=== PATIENT | male | born 1980 | race African-American/Black ===

== ENCOUNTER 2023-01-19 10:31 | Inpatient (IN) | payer OTHER ==
[~2023-01-19] VITALS: Ht 170.2 cm; Wt 66.7 kg
[~2023-01-19 10:31] MED LIST: CeFAZolin 2 GM/DEXTROSE 50 ML IV ONE; DIPH-1243 PO; MELO-381 PO; ZOLP10TA8 PO
[2023-01-19] MEDS ORDERED: ETHYL ALCOHOL 62% ANTISEPTIC NASAL SANITIZER 0.6 ML AMPUL NASAL ONE (11:00)
[2023-01-19] MEDS ORDERED: CeFAZolin 2 GM/DEXTROSE 50 ML IV ONE (11:25)
[2023-01-19] MEDS ORDERED: RINGERS SOLUTION,LACTATED 1,000 ML IV ONE (11:25)
[2023-01-19 12:02] LABS: BASOPHILS % (AUTO) 1.2 % (0.0-2.0); EOSINOPHILS % (AUTO) 0.6 % (1.0-6.0); HEMATOCRIT 39.3 % (41-53); HEMOGLOBIN 13.3 g/dL (13.5-17.5); LYMPHOCYTES % (AUTO) 37.9 % (22.0-44.0); MEAN CORPUSCULAR HEMOGLOBIN 31.7 pg (26.0-34.0); MEAN CORPUSCULAR HGB CONC 33.9 G/dL (31.0-37.0); MEAN CORPUSCULAR VOLUME 93 fL (80-100); MONOCYTES # (AUTO) 0.4 K/uL (0.1-1.0); MONOCYTES % (AUTO) 7.6 % (2.0-9.0); NEUTROPHILS # (AUTO) 2.8 K/uL (1.8-7.7); NEUTROPHILS % (AUTO) 52.7 % (40.0-70.0); PLATELET COUNT (AUTO) 284 K/uL (150-450); RED CELL DISTRIBUTION WIDTH 13.4 % (11.5-14.5)
[2023-01-19 12:08] LABS: ANION GAP 10 mmol/L (8-16); CALCIUM, TOTAL 9.6 mg/dL (8.8-10.5); CARBON DIOXIDE 30 mmol/L (22-29); CHLORIDE 102 mmol/L (98-107); CREATININE 1.02 mg/dL (0.60-1.30); GLOMERULAR FILTR. RATE CALC > 60 mL/min (>60); GLUCOSE,RANDOM 102 mg/dL (70-110); SODIUM SERUM 142 mmol/L (136-145); UREA NITROGEN, BLOOD 14 mg/dL (7-18)
[2023-01-19] MEDS ORDERED: SODIUM CHLORIDE 0.9% 1,000 ML ONE (12:08)
[2023-01-19] MEDS: RINGERS SOLUTION,LACTATED 1,000 ML IV SCH (12:10)
[2023-01-19 12:13] LABS: PROTHROMBIN TIME 10.4 SEC (9.4-11.6)
[2023-01-19 12:14] LABS: ALANINE AMINOTRANSFERASE 34 U/L (12-78); ALBUMIN 4.3 g/dL (3.4-5.0); ALKALINE PHOSPHATASE 54 U/L (46-116); ASPARTATE AMINOTRANSFERASE 25 U/L (15-37); BILIRUBIN,TOTAL 0.5 mg/dL (0.1-1.0); TOTAL PROTEIN, SERUM 7.8 g/dL (6.4-8.2)
[2023-01-19] MEDS ORDERED: SODIUM CHLORIDE 0.9% 50 ML ONE (12:34)
[2023-01-19] MEDS ORDERED: BUPIVACAINE HCL/PF 0.5% 30 ML VIAL ONE (12:35)
[2023-01-19] MEDS ORDERED: VANCOMYCIN HCL 1 GM/VIAL ONE (12:35)
[2023-01-19] MEDS ORDERED: SODIUM CHLORIDE 0.9% 100 ML ONE (13:11)
[2023-01-19] MEDS ORDERED: AMLO5TAB66 PO (13:13)
[2023-01-19] MEDS ORDERED: OXYC15TA2 PO (13:13)
[2023-01-19] MEDS ORDERED: BUPIVACAINE LIPOSOME/PF 1.3%-13.3MG/ML SUSPENSION 20 ML VIAL INJ ONE (13:15)
[2023-01-19] MEDS ORDERED: HYDROmorphone HCL 2 MG/ML SYRINGE ONE ×2 (15:02→18:50)
[2023-01-19] MEDS ORDERED: ROCURONIUM BROMIDE 10 MG/ML 5 ML VIAL ONE (15:46)
[2023-01-19] MEDS ORDERED: PROPOFOL 1000 MG/ISO-OSM 100 ML ONE (17:42)
[2023-01-19] MEDS ORDERED: FentaNYL CITRATE PF 100 MCG/2 ML VIAL ONE ×2 (18:41→19:22)
[2023-01-19] MEDS ORDERED: HYDROmorphone HCL 2 MG/ML SYRINGE IVP PRN (19:15)
[2023-01-19] MEDS: FentaNYL CITRATE PF 100 MCG/2 ML VIAL IVP PRN ×3 (19:24→19:27)
[2023-01-19] MEDS ORDERED: ONDANSETRON HCL 4 MG/2 ML VIAL IVP PRN ×2 (19:30→22:15)
[2023-01-19] MEDS ORDERED: FentaNYL CITRATE PF 100 MCG/2 ML VIAL IVP PRN (19:30)
[2023-01-19] MEDS ORDERED: CELECOXIB 200 MG CAPSULE PO ONE ×2 (19:30→21:00)
[2023-01-19] MEDS ORDERED: MEPERIDINE-PF 25 MG/ML VIAL IVP PRN (19:30)
[2023-01-19] MEDS: ACETAMINOPHEN 1000 MG/ISO-OSM 100 ML IV SCH (19:52)
[2023-01-19] MEDS: HYDROmorphone HCL 2 MG/ML SYRINGE IVP PRN ×3 (19:55→21:22)
[2023-01-19] MEDS: OXYGEN THERAPY IH SCH (20:00)
[2023-01-19] MEDS: CYCLOBENZAPRINE HCL 10 MG TABLET PO PRN (20:21)
[2023-01-19 20:53] VITALS: BP 138/80
[2023-01-19] MEDS ORDERED: ACETAMINOPHEN 325 MG TABLET PO PRN (22:15)
[2023-01-19] MEDS ORDERED: MAGNESIUM HYDROXIDE SUSPENSION 30 ML UDCUP PO PRN (22:15)
[2023-01-19] MEDS: ZOLPIDEM TARTRATE 5 MG TABLET PO PRN (23:15)
[2023-01-20] MEDS ORDERED: PNEUMOCOCCAL VACCINE POLYVALENT 0.5 ML VIAL [PPSV23] IM. ONE (00:45)
[2023-01-20 02:15] VITALS: BP 130/76
[2023-01-20] MEDS: HYDROmorphone HCL 2 MG/ML SYRINGE IVP PRN ×7 (02:20→20:07)
[2023-01-20] MEDS ORDERED: SODIUM CHLORIDE 0.9% 500 ML IV ONE (03:25)
[2023-01-20] MEDS: ACETAMINOPHEN 1000 MG/ISO-OSM 100 ML IV SCH (03:35)
[2023-01-20 03:44] VITALS: BP 132/73
[2023-01-20] MEDS ORDERED: ONDANSETRON HCL 4 MG/2 ML VIAL IVP ONE (05:24)
[2023-01-20] MEDS ORDERED: EPHEDrine SULFATE 50 MG/ML VIAL IM ONE (05:24)
[2023-01-20] MEDS ORDERED: ROCURONIUM BROMIDE 10 MG/ML 5 ML VIAL IVP ONE (05:24)
[2023-01-20] MEDS ORDERED: HEPARIN SODIUM,PORCINE 1,000 UNITS/ML 10 ML VIAL IVP ONE (05:24)
[2023-01-20] MEDS ORDERED: LIDOCAINE/PF 2% 5 ML VIAL IM ONE (05:24)
[2023-01-20] MEDS ORDERED: PROPOFOL 1% 20 ML VIAL IVP ONE (05:24)
[2023-01-20] MEDS ORDERED: 0.9% SODIUM CHLORIDE 10 ML VIAL IVP ONE (05:24)
[2023-01-20] MEDS ORDERED: MIDAZOLAM HCL 2 MG/2 ML VIAL IVP ONE (05:31)
[2023-01-20] MEDS ORDERED: FentaNYL CITRATE PF 100 MCG/2 ML VIAL IVP ONE (05:31)
[2023-01-20 07:40] VITALS: BP 149/96
[2023-01-20] MEDS: OXYGEN THERAPY IH SCH ×2 (08:00→20:42)
[2023-01-20] MEDS: FAMOTIDINE 20 MG TABLET PO SCH (08:43)
[2023-01-20] MEDS: DOCUSATE SODIUM 100 MG CAPSULE PO SCH ×2 (08:43→20:08)
[2023-01-20] MEDS: AmLODIPine BESYLATE 5 MG TABLET PO SCH (08:43)
[2023-01-20] MEDS: RINGERS SOLUTION,LACTATED 1,000 ML IV SCH (08:50)
[2023-01-20] MEDS: CYCLOBENZAPRINE HCL 10 MG TABLET PO PRN (08:50)
[2023-01-20 15:44] VITALS: BP 143/80
[2023-01-20] MEDS: OxyCODONE HCL/ACETAMINOPHEN 10-325 MG TABLET PO PRN ×2 (17:01→21:49)
[2023-01-20] MEDS ORDERED: OxyCODONE HCL/ACETAMINOPHEN 10-325 MG TABLET PO PRN (19:30)
[2023-01-20 20:05] VITALS: BP 131/90
[2023-01-20] MEDS: ZOLPIDEM TARTRATE 5 MG TABLET PO PRN (21:49)
[2023-01-21] MEDS: HYDROmorphone HCL 2 MG/ML SYRINGE IVP PRN ×5 (02:58→15:24)
[2023-01-21 05:00] VITALS: BP 84/113
[2023-01-21] MEDS: OxyCODONE HCL/ACETAMINOPHEN 10-325 MG TABLET PO PRN ×3 (05:36→20:13)
[2023-01-21 08:14] VITALS: BP 128/90
[2023-01-21] MEDS: DOCUSATE SODIUM 100 MG CAPSULE PO SCH ×2 (08:53→20:13)
[2023-01-21] MEDS: FAMOTIDINE 20 MG TABLET PO SCH (08:54)
[2023-01-21] MEDS: AmLODIPine BESYLATE 5 MG TABLET PO SCH (08:54)
[2023-01-21] MEDS: RINGERS SOLUTION,LACTATED 1,000 ML IV SCH (09:30)
[2023-01-21 16:08] VITALS: BP 133/88
[2023-01-21 19:50] VITALS: BP 143/87
[2023-01-21] MEDS: OXYGEN THERAPY IH SCH (20:00)
[2023-01-21] MEDS: CYCLOBENZAPRINE HCL 10 MG TABLET PO PRN (20:15)
[2023-01-21] MEDS: ZOLPIDEM TARTRATE 5 MG TABLET PO PRN (21:45)
[2023-01-22] MEDS: OxyCODONE HCL/ACETAMINOPHEN 10-325 MG TABLET PO PRN ×4 (02:22→14:30)
[2023-01-22 03:33] VITALS: BP 128/90
[2023-01-22] MEDS: HYDROmorphone HCL 2 MG/ML SYRINGE IVP PRN ×2 (03:35→11:20)
[2023-01-22 07:40] VITALS: BP 132/92
[2023-01-22] MEDS: AmLODIPine BESYLATE 5 MG TABLET PO SCH (08:13)
[2023-01-22] MEDS: DOCUSATE SODIUM 100 MG CAPSULE PO SCH (08:13)
[2023-01-22] MEDS: FAMOTIDINE 20 MG TABLET PO SCH (08:13)
[2023-01-22 12:58] LABS: BASOPHILS % (AUTO) 0.5 % (0.0-2.0); HEMATOCRIT 35.6 % (41-53); HEMOGLOBIN 11.7 g/dL (13.5-17.5); LYMPHOCYTES # (AUTO) 2.3 K/uL (1.0-4.8); LYMPHOCYTES % (AUTO) 22.5 % (22.0-44.0); MEAN CORPUSCULAR HEMOGLOBIN 31.2 pg (26.0-34.0); MEAN CORPUSCULAR HGB CONC 32.9 G/dL (31.0-37.0); MEAN CORPUSCULAR VOLUME 95 fL (80-100); MONOCYTES # (AUTO) 0.8 K/uL (0.1-1.0); MONOCYTES % (AUTO) 7.6 % (2.0-9.0); NEUTROPHILS % (AUTO) 68.4 % (40.0-70.0); PLATELET COUNT (AUTO) 278 K/uL (150-450); RED BLOOD CELL COUNT(AUTO) 3.76 MIL/uL (4.50-5.90); RED CELL DISTRIBUTION WIDTH 13.8 % (11.5-14.5)
[2023-01-22 13:12] LABS: ANION GAP 7 mmol/L (8-16); CALCIUM, TOTAL 9.5 mg/dL (8.8-10.5); CARBON DIOXIDE 29 mmol/L (22-29); CHLORIDE 101 mmol/L (98-107); CREATININE 0.85 mg/dL (0.60-1.30); GLOMERULAR FILTR. RATE CALC > 60 mL/min (>60); GLUCOSE,RANDOM 103 mg/dL (70-110); POTASSIUM 3.7 mmol/L (3.5-5.1); SODIUM SERUM 137 mmol/L (136-145); UREA NITROGEN, BLOOD 10 mg/dL (7-18)
[2023-01-22 14:08] LABS: APPEARANCE,URINE CLEAR (CLEAR); BILIRUBIN,URINE NEGATIVE (NEGATIVE); GLUCOSE, URINE (UA) NEGATIVE (NEGATIVE); KETONES,URINE NEGATIVE (NEGATIVE); LEUKOCYTE ESTERASE ,URINE NEGATIVE (NEGATIVE); NITRATE,URINE NEGATIVE (NEGATIVE); OCCULT BLOOD,URINE SMALL (NEGATIVE); PH,URINE 5.5 (5.0-8.0); PROTEIN,URINE TRACE mg/dL (NEGATIVE); SPECIFIC GRAVITIY, URINE 1.029 (1.003-1.030); UROBILINOGEN,URINE <=1.0 mg/dL (<=1.0)
[2023-01-22 14:31] LABS: BACTERIA,URINE Moderate /HPF (None Seen); RBC,URINE 0-2 /HPF (0-2); WBC,URINE None Seen /HPF (0-5)
[2023-01-22 14:32] LABS: SQUAMOUS EPITHELIAL CELL,UR Rare /LPF (None Seen)
[2023-01-22] MEDS ORDERED: OXYC-490 PO (15:15)
== END 2023-01-22 15:40 | disposition home or self-care (01) | DRG 304 ==
LOC: 6S 10:31
PROVIDERS: ADMIT Neurological Surgery; ATTEND Neurological Surgery
PROC: 4A11X4G Monitoring of Peripheral Nervous Electrical Activity, Intraoperative, External Approach (ICD-10-PCS; 2023-01-19)
PROC: 0SG0071 Fusion of Lumbar Vertebral Joint with Autologous Tissue Substitute, Posterior Approach, Posterior Column, Open Approach (ICD-10-PCS; 2023-01-19)
PROC: 0SB20ZZ Excision of Lumbar Vertebral Disc, Open Approach (ICD-10-PCS; 2023-01-19)
PROC: 0SG30AJ Fusion of Lumbosacral Joint with Interbody Fusion Device, Posterior Approach, Anterior Column, Open Approach (ICD-10-PCS; principal; 2023-01-19 15:05)
DX: M48.07 Spinal stenosis, lumbosacral region (principal); Q67.5 Congenital deformity of spine; M51.26 Other intervertebral disc displacement, lumbar region; F17.210 Nicotine dependence, cigarettes, uncomplicated; R50.9 Fever, unspecified; I10 Essential (primary) hypertension; Z82.49 Family history of ischemic heart disease and other diseases of the circulatory system; Z83.3 Family history of diabetes mellitus; Z88.0 Allergy status to penicillin; Z88.5 Allergy status to narcotic agent; Z91.013 Allergy to seafood; Z79.899 Other long term (current) drug therapy; Z71.6 Tobacco abuse counseling
CPT/HCPCS: 71045; 72100; 72131; 74176; 80048; 80053; 81001; 85025; 85610; 85730; 87081; 87086; 87186; 93005; 97116; 97162; 97167; 97530; 97535; C9290; G0238; G0378; J0131; J0690; J1170; J1644; J2250; J2405; J2704; J3010; J3370; J3490; J7030; J7040; J7050; J7120; Q9967; 36415-L1; 36415-TC; C1716; Z7610